=== PATIENT | male | born 1940 | race Asian ===

== ENCOUNTER 2018-04-10 15:35 | Emergency (ER) | payer MEDICARE ==
[2018-04-10 17:22] LABS: Basophils # (Auto) 0.1 K/mm3 (0.0-0.1); Basophils % (Auto) 0.7 % (0.0-1.8); Eosinophils # (Auto) 0.1 K/mm3 (0.0-0.4); Eosinophils % (Auto) 1.9 % (0.0-4.3); Hematocrit 37.3 % (35.5-45.6); Hemoglobin 12.5 gm/dl (11.8-15.2); Lymphocytes # (Auto) 1.2 K/mm3 (1.2-5.4); Lymphocytes % (Auto) 17.7 % (13.4-35.0); Mean Corpuscular HGB Conc 34 % (32-34); Mean Corpuscular Volume 90 fl (84-94); Monocytes # (Auto) 0.8 K/mm3 (0.0-0.8); Monocytes % (Auto) 11.6 % (0.0-7.3); Platelet Count 279 K/mm3 (140-440); Red Blood Count 4.16 M/mm3 (3.65-5.03); Red Cell Distribution Width 13.9 % (13.2-15.2)
[2018-04-10 17:45] LABS: Creatine Kinase MB 2.3 ng/mL (0.0-4.0)
[2018-04-10 17:47] LABS: Albumin 3.9 g/dL (3.9-5); Calcium 9.1 mg/dL (8.4-10.2)
[2018-04-10 17:57] LABS: Free T4 (Free Thyroxine) 1.36 ng/dL (0.76-1.46)
[2018-04-10] MEDS ORDERED: NACL 0.9% 1000 ML 1,000 ML IV ONE (18:00)
[2018-04-10] MEDS ORDERED: HumuLIN R IV ONE (18:01)
--- NOTE | 2018-04-10 18:28 | Cat Scan Report ---
FINAL REPORT PROCEDURE: CT head without contrast. TECHNIQUE: Computerized tomography of the head was performed without contrast material. HISTORY: decreased mental status, generalized weakness. NO GEORGIAN, MOVED SOME BUT BEST STUDY POSSIB LE, VERY AMS COMPARISON: No prior studies are available for comparison. FINDINGS: There is moderate cerebral atrophy. There are multiple small areas of increased attenuation within th e medial portion of the left temporal lobe, the left occipital lobe and a portion of the left parieta l lobe. This high attenuation is surrounded by some low-attenuation edema. The findings are consisten t with acute intraparenchymal hemorrhage. There is no significant mass effect from this hemorrhage. I t may represent a hemorrhagic stroke. Clinical correlation is suggested. The remainder of the alvarado an d white matter appear normal. The calvarium appears intact. The mastoid air cells are clear as far as visualized. There is opacification of the left maxillary sinus. IMPRESSION: Acute intraparenchymal hemorrhage involving portions of the left temporal, occipital and parietal lob es. Moderate cerebral atrophy. Chronic left maxillary sinusitis.
[2018-04-10] MEDS ORDERED: KEPPRA 1,000 MG/NS 0.75% 100ML 1,000 MG/100 ML BAG IV ONE (18:31)
--- NOTE | 2018-04-10 18:46 | Emergency Department Report ---
- General Chief complaint: Weakness Stated complaint: GENERAL WEAKNESS Time Seen by Provider: 04/10/18 16:18 Source: patient, family, old records reviewed (no previous record available for review) Mode of arrival: Wheelchair Limitations: Language Barrier, Altered Mental Status - History of Present Illness Initial comments: 77-year-old male with a past medical history hypertension, BPH, diabetes (insulin and pills), and elevated cholesterol presents to the hospital with generalized weakness and change in mental status 1 week. Patient is from [place] and speaks a little [place]. At the bedside are a woman and her grown child. Patient has apparently with them for "a long time" but they are not family. They state that the patient does not have any family. They brought the patient in because they are unable to care for him due to his deterioration over the last week. Patient now cannot walk without assistance, unable to have himself his medication, and today would not swallow his medication. Patient is eating and drinking appropriately. His glucose has been fluctuating up to 400 but improves after insulin administration. Patient denies pain. No reports of fever or infectious symptoms. Patient is oriented to self but not year or place. He takes a long time to answer questions and stares and blinks a lot while he is trying to come up with an answer. This is also an acute change as per his caretakers. The number of his caretakers/roommates were placed on the chart/demographics sheet. Past medical history obtained by reviewing patient's medications. No previous medical record available for review. Patient does take an aspirin 81 mg daily with last dose today. - Related Data Allergies Allergy/AdvReac Type Severity Reaction Status Date / Time No Known Allergies Allergy Unverified 04/10/18 15:51 ED Review of Systems ROS: Stated complaint: GENERAL WEAKNESS Other details as noted in HPI Comment: All other systems reviewed and negative ED Past Medical Hx - Past Medical History Previous Medical History?: Yes Hx Hypertension: Yes Hx Diabetes: Yes Additional medical history: BPH. Elevated cholesterol - Social History Smoking Status: Never Smoker ED Physical Exam - General Limitations: Altered Mental Status - Other Other exam information: General: No limitations, patient is alert in no acute distress Head exam: Atraumatic, normocephalic Eyes exam: Normal appearance, pupils equal reactive to light, extraocular movements intact ENT: Moist mucous membrane Neck exam: Normal inspection, full range of motion, no meningismus nontender Respiratory exam: Clear to auscultation bilateral, no wheezes, rales, crackles Cardiovascular: Normal rate and rhythm, normal heart sounds Abdomen: Soft, nondistended, and nontender, with normal bowel sounds, no rebound, or guarding Extremity: Full range of motion normal inspection no deformity Back: Normal Inspection, full range of motion, no tenderness Neurologic: Alert, oriented to self only, cranial nerves intact, no motor or sensory deficit. GCS equals 15 Psychiatric: normal affect, normal mood Skin: Warm, dry, intact ED Course Vital Signs 04/10/18 04/10/18 04/10/18 15:48 17:42 17:45 Temperature 98.6 F Pulse Rate 65 61 60 Respiratory 18 15 13 Rate Blood Pressure 119/46 137/57 O2 Sat by Pulse 100 97 98 Oximetry 04/10/18 04/10/18 04/10/18 18:00 18:22 18:30 Temperature Pulse Rate 60 71 Respiratory 14 16 Rate Blood Pressure 137/57 151/79 145/69 O2 Sat by Pulse 98 98 98 Oximetry 04/10/18 18:45 Temperature Pulse Rate 64 Respiratory 14 Rate Blood Pressure 140/66 O2 Sat by Pulse 99 Oximetry - Consultations Consultation #1: 04/10/18 17:35 EKG reviewed and discussed with on-call STEMI key bed installer is Dr. Darnell. He agrees that there are no signs of acute STEMI at this time. Consultation #2: 04/10/18 18:45 Conference call with [facility] transfer service involving critical care attending Dr. Daugherty in neurosurgical attending Dr. Camp. Patient has been accepted for transfer to neurosurgical ICU. Keppra 1500 mg recommended. ED Medical Decision Making - Lab Data Result diagrams: 04/10/18 16:36 04/10/18 16:36 Lab Results 04/10/18 04/10/18 04/10/18 Range/Units 15:47 16:36 16:36 WBC 7.0 (4.5-11.0) K/mm3 RBC 4.16 (3.65-5.03) M/mm3 Hgb 12.5 (11.8-15.2) gm/dl Hct 37.3 (35.5-45.6) % MCV 90 (84-94) fl MCH 30 (28-32) pg MCHC 34 (32-34) % RDW 13.9 (13.2-15.2) % Plt Count 279 (140-440) K/mm3 Lymph % (Auto) 17.7 (13.4-35.0) % [place] % (Auto) 11.6 H (0.0-7.3) % Eos % (Auto) 1.9 (0.0-4.3) % Baso % (Auto) 0.7 (0.0-1.8) % Lymph # 1.2 (1.2-5.4) K/mm3 [place] # 0.8 (0.0-0.8) K/mm3 Eos # 0.1 (0.0-0.4) K/mm3 Baso # 0.1 (0.0-0.1) K/mm3 Seg Neutrophils % 68.1 (40.0-70.0) % Seg Neutrophils # 4.8 (1.8-7.7) K/mm3 Sodium 127 L (137-145) mmol/L Potassium 5.3 H (3.6-5.0) mmol/L Chloride 91.3 L (98-107) mmol/L Carbon Dioxide 25 (22-30) mmol/L Anion Gap 16 mmol/L BUN 49 H (9-20) mg/dL Creatinine 2.3 H (0.8-1.5) mg/dL Estimated GFR 28 ml/min BUN/Creatinine Ratio 21 % Glucose 327 H (75-100) mg/dL POC Glucose 251 H (70-105) Calcium 9.1 (8.4-10.2) mg/dL Total Bilirubin 0.30 (0.1-1.2) mg/dL AST 18 (5-40) units/L ALT 16 (7-56) units/L Alkaline Phosphatase 67 (35-129) units/L Total Creatine Kinase (55-170) units/L CK-MB (CK-2) (0.0-4.0) ng/mL CK-MB (CK-2) Rel Index (0-4) Troponin T 0.012 (0.00-0.029) ng/mL Total Protein 6.7 (6.3-8.2) g/dL Albumin 3.9 (3.9-5) g/dL Albumin/Globulin Ratio 1.4 % TSH (0.270-4.200) mlU/mL Free T4 (0.76-1.46) ng/dL Salicylates (2.8-20.0) mg/dL Acetaminophen (10.0-30.0) ug/mL Plasma/Serum Alcohol (0-0.07) % 04/10/18 04/10/18 04/10/18 Range/Units 16:36 16:36 16:36 WBC (4.5-11.0) K/mm3 RBC (3.65-5.03) M/mm3 Hgb (11.8-15.2) gm/dl Hct (35.5-45.6) % MCV (84-94) fl MCH (28-32) pg MCHC (32-34) % RDW (13.2-15.2) % Plt Count (140-440) K/mm3 Lymph % (Auto) (13.4-35.0) % [place] % (Auto) (0.0-7.3) % Eos % (Auto) (0.0-4.3) % Baso % (Auto) (0.0-1.8) % Lymph # (1.2-5.4) K/mm3 [place] # (0.0-0.8) K/mm3 Eos # (0.0-0.4) K/mm3 Baso # (0.0-0.1) K/mm3 Seg Neutrophils % (40.0-70.0) % Seg Neutrophils # (1.8-7.7) K/mm3 Sodium (137-145) mmol/L Potassium (3.6-5.0) mmol/L Chloride (98-107) mmol/L Carbon Dioxide (22-30) mmol/L Anion Gap mmol/L BUN (9-20) mg/dL Creatinine (0.8-1.5) mg/dL Estimated GFR ml/min BUN/Creatinine Ratio % Glucose (75-100) mg/dL POC Glucose (70-105) Calcium (8.4-10.2) mg/dL Total Bilirubin (0.1-1.2) mg/dL AST (5-40) units/L ALT (7-56) units/L Alkaline Phosphatase (35-129) units/L Total Creatine Kinase 56 (55-170) units/L CK-MB (CK-2) 2.3 (0.0-4.0) ng/mL CK-MB (CK-2) Rel Index 4.1 H (0-4) Troponin T (0.00-0.029) ng/mL Total Protein (6.3-8.2) g/dL Albumin (3.9-5) g/dL Albumin/Globulin Ratio % TSH (0.270-4.200) mlU/mL Free T4 (0.76-1.46) ng/dL Salicylates < 0.3 L (2.8-20.0) mg/dL Acetaminophen < 5.0 L (10.0-30.0) ug/mL Plasma/Serum Alcohol (0-0.07) % 04/10/18 04/10/18 Range/Units 16:36 16:36 WBC (4.5-11.0) K/mm3 RBC (3.65-5.03) M/mm3 Hgb (11.8-15.2) gm/dl Hct (35.5-45.6) % MCV (84-94) fl MCH (28-32) pg MCHC (32-34) % RDW (13.2-15.2) % Plt Count (140-440) K/mm3 Lymph % (Auto) (13.4-35.0) % [place] % (Auto) (0.0-7.3) % Eos % (Auto) (0.0-4.3) % Baso % (Auto) (0.0-1.8) % Lymph # (1.2-5.4) K/mm3 [place] # (0.0-0.8) K/mm3 Eos # (0.0-0.4) K/mm3 Baso # (0.0-0.1) K/mm3 Seg Neutrophils % (40.0-70.0) % Seg Neutrophils # (1.8-7.7) K/mm3 Sodium (137-145) mmol/L Potassium (3.6-5.0) mmol/L Chloride (98-107) mmol/L Carbon Dioxide (22-30) mmol/L Anion Gap mmol/L BUN (9-20) mg/dL Creatinine (0.8-1.5) mg/dL Estimated GFR ml/min BUN/Creatinine Ratio % Glucose (75-100) mg/dL POC Glucose (70-105) Calcium (8.4-10.2) mg/dL Total Bilirubin (0.1-1.2) mg/dL AST (5-40) units/L ALT (7-56) units/L Alkaline Phosphatase (35-129) units/L Total Creatine Kinase (55-170) units/L CK-MB (CK-2) (0.0-4.0) ng/mL CK-MB (CK-2) Rel Index (0-4) Troponin T (0.00-0.029) ng/mL Total Protein (6.3-8.2) g/dL Albumin (3.9-5) g/dL Albumin/Globulin Ratio % TSH 1.740 (0.270-4.200) mlU/mL Free T4 1.36 (0.76-1.46) ng/dL Salicylates (2.8-20.0) mg/dL Acetaminophen (10.0-30.0) ug/mL Plasma/Serum Alcohol < 0.01 (0-0.07) % - EKG Data -: EKG Interpreted by [facility] EKG shows normal: sinus rhythm, axis (qrs 60), intervals, QRS complexes (qrsd 113), ST-T waves (no stemi) - EKG Data When compared to previous EKG there are: previous EKG unavailable - Radiology Data Radiology results: report reviewed CT head non-contrast: Acute intra-parenchymal hemorrhage involving the left temporal, occipital, and parietal lobes. Moderate cerebral atrophy. Chronic left maxillary sinusitis. Chest x-ray portable: Cardiomegaly. 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 - Medical Decision Making During ED stay patient's systolic blood pressure less than 150 and he did not require any additional antihypertensive. Although patient has some confusion he is otherwise alert and able to follow commands without any focal deficits. Kepp ra 1500 mg ordered as recommended by critical care attending at [facility]. Patient has been accepted for transfer to [facility]. Renal insufficiency noted with unknown baseline. Normal saline at 150 mL per hour ordered and regular insulin for hyperglycemia Mild hyperkalemia noted. Only insulin provided - Differential Diagnosis encephalopathy, dehydration, UTI, infection, stroke, hemorrhage Critical Care Time: Yes Critical care time in (mins) excluding proc time.: 30 Critical care attestation.: If time is entered above; I have spent that time in minutes in the direct care of this critically ill patient, excluding procedure time. ED Disposition Clinical Impression: Intraparenchymal hemorrhage of brain, Renal insufficiency, Mental status al teration, Generalized weakness, Hyperkalemia Disposition: DC/TX-70 ANOTHER TYPE HLTHCARE Is pt being admited?: No Does the pt Need Aspirin: No Condition: Stable Time of Disposition: 19:11 ([facility] ([facility]) )
--- NOTE | 2018-04-10 18:47 | XRay Report ---
FINAL REPORT PROCEDURE: Chest. TECHNIQUE: Portable AP view. HISTORY: Cough, generalized weakness. COMPARISON: No prior studies are available for comparison. FINDINGS: The heart size is enlarged. The lungs are clear and well expanded. There are no pleural effusions. Th e patient appears to have a right-sided aortic arch. The aortic arch is prominent and I cannot exclud e an aneurysm of the aortic arch. When clinically appropriate, a CT scan of the chest with contrast w ould be useful for further evaluation. There are no pleural effusions. The soft tissues and regional skeleton are unremarkable. IMPRESSION: Cardiomegaly. 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
[2018-04-10 19:13] LABS: INR 1.01 (0.87-1.13)
[2018-04-10 19:14] LABS: Partial Thromboplastin Time 31.3 Sec. (24.2-36.6)
[2018-04-10 19:23] LABS: Bilirubin,Urine NEG (Negative); Blood,Urine NEG (Negative); Color,Urine Straw (Yellow); Protein,Urine <15 mg/dL mg/dL (Negative); Urobilinogen,Urine < 2.0 mg/dL (<2.0); WBC,Urine < 1.0 /HPF (0.0-6.0)
[2018-04-10 19:41] LABS: Amphetamine Screen,Urine PRESUMPTIVE NEGATIVE; Benzodiazepines Screen,Urine PRESUMPTIVE NEGATIVE; Cannabinoid Screen,Urine PRESUMPTIVE NEGATIVE; Cocaine Screen,Urine PRESUMPTIVE NEGATIVE; Methadone Screen,Urine PRESUMPTIVE NEGATIVE; Opiate Screen,Urine PRESUMPTIVE NEGATIVE
[2018-04-10] MEDS ORDERED: KEPPRA 500 MG/NS 0.82% 100 ML 500 MG/100 ML BAG IV ONE (20:00)
[2018-04-10] MEDS ORDERED: KEPPRA 500 MG in NACL 0.9% 100 ML IV ONE (21:00)
[2018-04-10 21:22] VITALS: BP 122/64
== END 2018-04-10 21:19 | disposition other institution (70) ==
LOC: ED 15:35
DX: I61.3 Nontraumatic intracerebral hemorrhage in brain stem (principal); E87.5 Hyperkalemia; R41.82 Altered mental status, unspecified; I10 Essential (primary) hypertension; E78.00 Pure hypercholesterolemia, unspecified; E11.9 Type 2 diabetes mellitus without complications; Z79.4 Long term (current) use of insulin; Z79.82 Long term (current) use of aspirin
CPT/HCPCS: 36415; 70450; 71045; 80053; 80307; 81001; 82550; 82553; 82962; 84439; 84443; 84484; 85025; 85610; 85730; 93005; 93010; 96365; 96375; 99291; G0480; J1953; J7030; 80320; J1815